=== PATIENT | female | born 1995 | race Caucasian/White ===

== ENCOUNTER 2024-04-25 10:30 | Emergency (ER) | payer OTHER, SELFPAY ==
[2024-04-25 10:55] VITALS: BP 123/73; PULSE 90; RESP 16; TEMP 36.7; O2SAT 100
--- NOTE | 2024-04-25 11:14 | ED.GENADULT ---
HPI - General Adult General Chief complaint: Back Pain/Injury Stated complaint: pulled groin Time Seen by Provider: 04/25/24 11:14 Source: patient Mode of arrival: ambulatory Limitations: no limitations History of Present Illness HPI narrative: 28-year-old female presented for complaint of left groin pain after injury 3 days ago. She states while dancing she slipped on the floor causing the left leg to Street behind her in the right leg to straight front of her. She has taken ibuprofen. Continues to report tenderness to touch and with walking. Denies numbness, tingling, weakness of the left lower extremity. 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 Related Data Home Medications Medication Instructions Recorded Confirmed propranolol 40 mg tablet 40 mg PO BID 04/25/24 04/25/24 semaglutide (weight loss) 0.25 0.25 mg subcut WEEKLY 04/25/24 04/25/24 mg/0.5 mL subcutaneous pen injector (Wegovy) sertraline 100 mg tablet 100 mg PO DAILY 04/25/24 04/25/24 Allergies Allergy/AdvReac Type Severity Reaction Status Date / Time latex AdvReac Mild Rash Verified 04/25/24 11:16 Review of Systems Review of Systems: CONSTITUTIONAL: Denies body aches, fever, chills CARDIOVASCULAR: Denies chest pain, palpitations, or edema. RESPIRATORY: Denies cough or dyspnea. SKIN: Denies rash, bruising MUSCULOSKELETAL: Reports left groin pain NEUROLOGIC: Denies headache, numbness, tingling, or weakness. All systems reviewed & are unremarkable except as noted in HPI and below PMFSH Comments At time of signature, I have reviewed and agree with nursing past medical, surgical, social and family history unless otherwise noted. Please see nursing chart for further information. There is no relevant family history pertinent to the presenting complaint Exam Narrative: GENERAL: Well-appearing CHEST: Speaks in full sentences. No respiratory distress. HEART: Regular rate and rhythm. Normal and equal peripheral pulses. EXTREMITIES: LLE has normal strength and sensation. Limited range of motion at left hip due to pain with movement. Tender with palpation to left hip flexor area extending to medial upper thigh. Tolerates sitting.No ecchymosis, No open wounds, or obvious deformity; alignment normal, pulse palpable and equal bilaterally, skin warm, dry, pink. Capillary refill less than 3 seconds. SKIN: Warm, dry, no rash. NEURO: Alert and oriented x3. PSYCH: Normal mood and affect Extrem: Upper/lower leg/hip images: 1. area of reported pain and tenderness with palpation Course Course Emergency Course: Patient is aware of diagnosis, understands and agrees to treatment plan. Anticipatory guidance given. Patient agrees to follow-up as directed and is aware of reasons to seek care at the emergency department. Portions of this record may have been created with voice recognition software Level of Care: Express Care Visit Vital Signs Vital signs: Vital Signs Temperature 98.1 F 04/25/24 10:55 Pulse Rate 90 04/25/24 10:55 Respiratory Rate 16 04/25/24 10:55 Blood Pressure 123/73 04/25/24 10:55 Pulse Oximetry 100 04/25/24 10:55 Oxygen Delivery Room Air 04/25/24 10:55 Temperature 98.1 F 04/25/24 10:55 Pulse Rate 90 04/25/24 10:55 Respiratory Rate 16 04/25/24 10:55 Blood Pressure 123/73 04/25/24 10:55 Pulse Oximetry 100 04/25/24 10:55 Oxygen Delivery Room Air 04/25/24 10:55 Reviewed Medical Decision Making MDM Narrative Medical decision making narrative: Discussed physical exam findings and Rx. Advised supportive measures and signs/symptoms to go to the ER. Pt is appropriate for outpt treatment and f/u. Differential Diagnosis Differential Diagnosis: Hip dislocation, impingement, femur fracture, pelvic fracture, hip bursitis, psoas abscess, piriformis syndrome, septic arthritis, osteoarthritis, avascular necrosis of hip, lumbar radiculopathy Vital Signs Vital
== END 2024-04-25 11:23 | disposition home or self-care (01) ==
PROVIDERS: Emergency Provider Nurse Practitioner Family
DX: S39.011A Strain of muscle, fascia and tendon of abdomen, initial encounter (principal); W01.0XXA Fall on same level from slipping, tripping and stumbling without subsequent striking against object, initial encounter; Y93.41 Activity, dancing; Z86.16 Personal history of COVID-19
CPT/HCPCS: 99203; G0463